=== PATIENT | female | born 1955 | race Two or more races ===

== ENCOUNTER 2017-03-27 13:57 | Outpatient (CLI) | payer OTHER | END 2017-03-27 14:10 | disposition home or self-care (01) | LOC: MAMO-SONO 13:57 | DX: Z12.31 Encounter for screening mammogram for malignant neoplasm of breast (principal); Z87.898 Personal history of other specified conditions; N61.0 Mastitis without abscess ==

== ENCOUNTER 2017-03-27 14:28 | Outpatient (CLI) | payer OTHER | END 2017-03-27 14:30 | disposition home or self-care (01) | LOC: NUCLEAR 14:28 | DX: M81.0 Age-related osteoporosis without current pathological fracture (principal) ==